=== PATIENT | male | born 1995 | race Caucasian/White ===

== ENCOUNTER 2022-12-10 10:16 | Day surgery (SDC) | payer OTHER ==
[~2022-12-10] VITALS: Ht 188 cm; Wt 78.5 kg
[~2022-12-10 10:16] MED LIST: ACET-907 PO; IBUP200C25 PO
[2022-12-10] MEDS ORDERED: COCAINE 4% 4ML NASAL SOLUTION BTL As Ordered ONE (10:49)
[2022-12-10] MEDS ORDERED: LIDOCAINE W/EPINEPHRINE 1% 20ML VIAL As Ordered ONE (10:49)
[2022-12-10] MEDS ORDERED: SUGAMMADEX SODIUM 500 MG/5 ML VIAL (BRIDION) As Ordered ONE (10:51)
[2022-12-10] MEDS ORDERED: LIDOCAINE 2% 100MG/5ML SDV (FOR ANES.) As Ordered ONE (10:51)
[2022-12-10] MEDS ORDERED: ROCURONIUM BROMIDE 50MG/5ML VIAL As Ordered ONE (10:51)
[2022-12-10] MEDS ORDERED: ONDANSETRON 4MG 2ML VIAL As Ordered ONE (10:51)
[2022-12-10] MEDS ORDERED: propofoL 200 MG/20 ML VIAL As Ordered ONE ×3 (10:51→11:48)
[2022-12-10] MEDS ORDERED: MIDAZOLAM INJ 2MG/2ML VIAL As Ordered ONE (10:52)
[2022-12-10] MEDS ORDERED: fentaNYL 100 MCG/2 ML INJECTION As Ordered ONE (10:53)
[2022-12-10] MEDS ORDERED: ACETAMINOPHEN 1000MG 100ML IV BAG As Ordered ONE (11:21)
[2022-12-10] MEDS ORDERED: ONDANSETRON 4MG 2ML VIAL IV PRN (11:40)
[2022-12-10] MEDS ORDERED: fentaNYL 100 MCG/2 ML INJECTION IV PRN (11:40)
[2022-12-10] MEDS ORDERED: LR 1,000 ML IV SCH ×2 (11:40→12:10)
[2022-12-10] MEDS ORDERED: oxyCODONE 5MG TAB PO PRN (11:40)
[2022-12-10] MEDS ORDERED: HYDROMORPHONE HCL 0.5 MG/ 0.5 ML SYRINGE IV PRN (11:40)
[2022-12-10] MEDS ORDERED: METOCLOPRAMIDE INJ 10MG/2ML VIAL IV PRN (12:15)
[2022-12-10 13:32] VITALS: BP 129/74; TEMP 98.2; O2SAT 97
== END 2022-12-10 13:38 | disposition home or self-care (01) ==
LOC: M SDC 10:16
PROVIDERS: ATTEND Otolaryngology
DX: S02.2XXA Fracture of nasal bones, initial encounter for closed fracture (principal); X58.XXXA Exposure to other specified factors, initial encounter; Y92.89 Other specified places as the place of occurrence of the external cause; Y93.9 Activity, unspecified; Y99.9 Unspecified external cause status
CPT/HCPCS: 21320; C9143; J0131; J1100; J2250; J2405; J2765; J3010

== ENCOUNTER → 2023-10-10 | Outpatient (REF) | payer OTHER ==
[2023-10-10 15:21] LABS: SEMEN APPEARANCE OPAQUE (OPAQUE); SEMEN VISCOSITY VISCOUS (LIQUID); SEMEN VOLUME 2.8 ml (2.0-5.0); WBC CONCENTRATION <=1 M/ml (<=1 M/ml)
[2023-10-10 15:23] LABS: SPERM CONCENTRATION 129.8 M/ml (>=15.0)
== END ==
LOC: M LAB REF 14:45
PROVIDERS: ATTEND Physician Assistant
DX: N46.9 Male infertility, unspecified (principal)

== ENCOUNTER → 2023-10-15 | Outpatient (REF) | payer OTHER ==
[2023-10-15 14:21] LABS: SEMEN APPEARANCE OPAQUE (OPAQUE); SEMEN VISCOSITY VISCOUS (LIQUID); SEMEN VOLUME 2.6 ml (2.0-5.0); SPERM CONCENTRATION 120.9 M/ml (>=15.0); WBC CONCENTRATION >1 M/ml (<=1 M/ml)
== END ==
LOC: M LAB REF 13:29
PROVIDERS: ATTEND Physician Assistant
DX: N46.9 Male infertility, unspecified (principal)

== ENCOUNTER → 2023-10-18 | Outpatient (REF) | payer OTHER ==
[2023-10-18 11:52] LABS: SEMEN APPEARANCE OPAQUE (OPAQUE); SEMEN VISCOSITY VISCOUS (LIQUID); SEMEN VOLUME 2.1 ml (2.0-5.0); SPERM CONCENTRATION 102.3 M/ml (>=15.0); WBC CONCENTRATION >1 M/ml (<=1 M/ml)
== END ==
LOC: M LAB REF 10:29
PROVIDERS: ATTEND Physician Assistant
DX: N46.9 Male infertility, unspecified (principal)

== ENCOUNTER → 2024-01-28 | Outpatient (CLI) | payer OTHER ==
[~2024-01-28] MED LIST changes: +PROHANCE 279.3MG/ML 5ML VIAL As Ordered ONE
== END ==
LOC: M RAD 15:13
PROVIDERS: ATTEND Nurse Practitioner Family
DX: E29.1 Testicular hypofunction (principal)

== ENCOUNTER → 2024-07-20 | Outpatient (CLI) | payer OTHER ==
[~2024-07-20] MED LIST changes: -PROHANCE 279.3MG/ML 5ML VIAL As Ordered ONE
== END ==
LOC: M RAD 12:51
PROVIDERS: ATTEND Otolaryngology Otolaryngology/Facial Plastic Surgery
DX: J34.89 Other specified disorders of nose and nasal sinuses (principal)

== ENCOUNTER 2024-08-30 22:05 | Inpatient (IN) | payer OTHER ==
[~2024-08-30] VITALS: Ht 188 cm; Wt 74.6 kg
[2024-08-30] MEDS ORDERED: AZEL1SPR3 (22:12)
[2024-08-30] MEDS ORDERED: FLUTISP (22:12)
[2024-08-30] MEDS ORDERED: GUAI600T12 (22:12)
[2024-08-30 22:47] LABS: HEMOGLOBIN 15.3 g/dl (13.5-17.5); MEAN CORPUSCULAR HEMOGLOBIN 29.9 pg (27.0-33.0); MEAN CORPUSCULAR HGB CONC 34.8 g/dl (32.0-36.5); MEAN CORPUSCULAR VOLUME 85.9 fl (80.0-96.0); PLATELET COUNT, AUTOMATED 420 10^3/uL (150-450); RED BLOOD COUNT 5.12 10^6/uL (4.30-6.10); WHITE BLOOD COUNT 10.9 10^3/uL (4.0-10.0)
[2024-08-30 23:10] LABS: AMPHETAMINES LEVEL URINE NEGATIVE (NEGATIVE); BARBITURATES URINE NEGATIVE (NEGATIVE)
[2024-08-30 23:11] LABS: BENZODIAZEPINES URINE NEGATIVE (NEGATIVE); CANNABINOIDS URINE NEGATIVE (NEGATIVE); COCAINE METABOLITE URINE NEGATIVE (NEGATIVE); METHADONE URINE NEGATIVE (NEGATIVE); OPIATES URINE NEGATIVE (NEGATIVE); PHENCYCLIDINE URINE NEGATIVE (NEGATIVE)
[2024-08-30 23:12] LABS: ETHYL ALCOHOL (ETHANOL) < 0.003 % (0.000-0.010)
[2024-08-30 23:14] LABS: ALBUMIN 4.2 G/DL (3.2-5.2); ALKALINE PHOSPHATASE 128 U/L (40-129); ALT/SGPT 32 U/L (7.0-40); AST/SGOT 21 U/L (<34); BILIRUBIN,DIRECT 0.2 MG/DL (<0.4); BILIRUBIN,TOTAL 0.5 MG/DL (0.3-1.2); BLOOD UREA NITROGEN 14 MG/DL (9-23); CALCIUM LEVEL 9.5 MG/DL (8.5-10.1); CARBON DIOXIDE LEVEL 26 MMOL/L (20-31); CHLORIDE LEVEL 109 MMOL/L (98-107); CREATININE FOR GFR 0.74 MG/DL (0.70-1.30); GLOMERULAR FILTRATION RATE > 60.0 (>60); GLUCOSE, FASTING 104 MG/DL (60-100); SALICYLATE LEVEL < 3.0 MG/DL (<30); SODIUM LEVEL 145 MMOL/L (136-145); TOTAL PROTEIN 7.5 G/DL (5.7-8.2)
[2024-08-30 23:17] LABS: THYROID STIMULATING HORMONE 3.407 uIU/ML (0.55-4.78)
[2024-08-31] MEDS ORDERED: ACETAMINOPHEN 325 MG TAB PO PRN (00:55)
[2024-08-31] MEDS ORDERED: MOM 30ML SUSPENSION UDC PO PRN (00:55)
[2024-08-31] MEDS ORDERED: traZODone 50 MG TAB PO PRN (00:55)
[2024-08-31] MEDS ORDERED: OLANZapine ORAL DISINTEGRATING TAB 5MG PO PRN (00:55)
[2024-08-31] MEDS ORDERED: diphenhydrAMINE 25MG CAP PO PRN (00:55)
[2024-08-31] MEDS ORDERED: MAALOX 30 ML SUSP *UDC PO PRN (00:55)
[2024-08-31] MEDS ORDERED: IBUPROFEN 400MG TAB PO PRN (00:55)
[2024-08-31 01:52] VITALS: BP 116/76; TEMP 97.6; O2SAT 97
[2024-08-31] MEDS ORDERED: FLUT15.820 NARES (09:00)
[2024-08-31] MEDS ORDERED: AZEL1SPR4 NARES (09:00)
[2024-08-31] MEDS ORDERED: HOME MED LIST COMPLETE! XX SCH (09:00)
[2024-09-01 06:39] VITALS: BP 105/61; TEMP 96.8; O2SAT 99
== END 2024-09-01 11:28 | disposition home or self-care (01) | DRG 881 ==
LOC: M ED 22:05 → M ED INP 08-31 00:53 → M PSY 08-31 01:23
PROVIDERS: ADMIT Psychiatry & Neurology Neurology; ATTEND Psychiatry & Neurology Psychiatry
DX: F32.A Depression, unspecified (principal); R45.851 Suicidal ideations; F43.23 Adjustment disorder with mixed anxiety and depressed mood; Z63.0 Problems in relationship with spouse or partner; Z91.82 Personal history of military deployment; F17.290 Nicotine dependence, other tobacco product, uncomplicated